=== PATIENT | male | born 1995 | race Caucasian/White ===

== ENCOUNTER 2016-12-21 23:50 | Inpatient (IN) | payer SELFPAY ==
[~2016-12-21] VITALS: Ht 165.1 cm; Wt 86.2 kg
--- NOTE | 2016-12-22 | NUR ---
21 YO MALE BB RA, C/O "WAS EATING CHICKEN STRIPS AND FEEL LIKE ONE IS STUCK IN MY THROAT". PT AMBULATED TO ER BED, SKIN WARM AND DRY, RR EVEN AND UNLABORED. AWAITING ORDERS FROM PROVIDER
[2016-12-22] MEDS ORDERED: METOCLOPRAMIDE HCL 10 MG/2 ML VIAL ONE (00:07)
[2016-12-22] MEDS ORDERED: diphenhydrAMINE HCL 50 MG/ML VIAL ONE (00:07)
--- NOTE | 2016-12-22 00:16 | NUR ---
MEDICATED PT ORDERED
[2016-12-22] MEDS ORDERED: diphenhydrAMINE HCL 50 MG/ML VIAL IM ONE (00:30)
[2016-12-22] MEDS ORDERED: NITROGLYCERIN 0.4 MG/TAB BOTTLE SL ONE (00:30)
[2016-12-22] MEDS ORDERED: METOCLOPRAMIDE HCL 10 MG/2 ML VIAL IM ONE (00:30)
[2016-12-22] MEDS ORDERED: IV PREMIX D5 1/2NS + KCL 1,000 ML IV ONE ×2 (00:57→01:18)
[2016-12-22] MEDS ORDERED: LORAZEPAM INJ 2 MG/ML VIAL IV ONE (01:00)
[2016-12-22 01:12] LABS: BASOPHILS # (AUTO) 0.1 /CMM (0.0-0.2); EOSINOPHILS # (AUTO) 0.5 /CMM (0.0-0.7); EOSINOPHILS % (AUTO) 4.6 % (0.0-6.0); HEMATOCRIT 41 % (39-51); HEMOGLOBIN 13.3 g/dL (13.5-17.5); LYMPHOCYTES # (AUTO) 2.8 /CMM (0.8-4.8); LYMPHOCYTES % (AUTO) 27.5 % (20.0-44.0); MEAN CORPUSCULAR HEMOGLOBIN 26 PG (26.0-33.0); MEAN CORPUSCULAR HGB CONC 33 g/dl (31.0-36.0); MEAN CORPUSCULAR VOLUME 79 fL (80-96); MONOCYTES # (AUTO) 0.7 /CMM (0.1-1.30); MONOCYTES % (AUTO) 6.9 % (2.0-12.0); NEUTROPHILS # (AUTO) 6.1 /CMM (1.8-8.9); PLATELET COUNT (AUTO) 442 /CMM (150-450); RDW COEFFICIENT OF VARIATION 14.4 (11.5-15.0); RED BLOOD CELL COUNT(AUTO) 5.19 MIL/uL (4.5-6.0); WHITE BLOOD COUNT (AUTO) 10.1 K/uL (4.3-11.0)
[2016-12-22] MEDS ORDERED: IV SET PRIMARY PUMP SET 1 EA INFUS.SET MC ONE (01:18)
[2016-12-22] MEDS ORDERED: LORAZEPAM INJ 2 MG/ML VIAL ONE (01:19)
[2016-12-22 01:23] LABS: CALCIUM, SERUM 8.7 mg/dL (8.5-10.1); CARBON DIOXIDE 27 mmol/L (21-32); CHLORIDE 108 mmol/L (98-107); CREATININE 1.1 mg/dL (0.6-1.3); GFR 85 mL/min (>60); GLUCOSE 92 mg/dL (74-106); POTASSIUM 3.9 mmol/L (3.5-5.1); SODIUM SERUM 143 mmol/L (136-145); UREA NITROGEN, BLOOD 8 mg/dL (7-18)
[2016-12-22 01:29] LABS: ALANINE AMINOTRANSFERASE 22 U/L (12-78); ALKALINE PHOSPHATASE 78 U/L (46-116); ASPARTATE AMINOTRANSFERASE 19 U/L (15-37); BILIRUBIN,TOTAL 0.1 mg/dL (0.2-1.0); TOTAL PROTEIN, SERUM 8.4 g/dL (6.4-8.2)
--- NOTE | 2016-12-22 01:31 | NUR ---
MEDICATED PT ORDERED
[2016-12-22 01:32] LABS: PROTHROMBIN TIME 10.7 SECS (9.5-12.7)
[2016-12-22 01:33] LABS: TROPONIN I < 0.017 ng/mL (0.00-0.056)
[2016-12-22] MEDS ORDERED: ONDANSETRON HCL/PF 4 MG/2 ML VIAL ONE (01:45)
--- NOTE | 2016-12-22 02:20 | NUR ---
MS/RN NOTES RECEIVED REPORT PATIENT WILL BE ON MS NOT TELE PER CHARGE NURSE.
[2016-12-22] MEDS ORDERED: MORPHINE SULFATE INJ 2 MG/ML DISP.SYRIN IV PRN ×2 (02:30→21:00)
[2016-12-22] MEDS ORDERED: MAGNESIUM HYDROXIDE 30 ML UDC PO PRN (02:30)
[2016-12-22] MEDS ORDERED: ZOLPIDEM TARTRATE 5 MG TABLET PO PRN (02:30)
[2016-12-22] MEDS ORDERED: HYDROCODONE/APAP 5/325MG 1 EACH TABLET PO PRN (02:30)
[2016-12-22] MEDS ORDERED: Z GUARD REMEDY 2 OZ OINT TP PRN (02:30)
[2016-12-22] MEDS ORDERED: MAG HYDROX/AL HYDROX/SIMETH 30 ML UDC PO PRN (02:30)
[2016-12-22] MEDS ORDERED: ACETAMINOPHEN 325 MG TABLET PO PRN (02:30)
--- NOTE | 2016-12-22 02:30 | NUR ---
MS/RN NOTES RECEIVED NEW ADMITTED PATIENT IS A 21Y.O MALE WHO CAME FROM ER DUE TO REPORT FROM PATIENT"WAS EATING CHICKEN STRIP AND FELT LIKE ONE PIECE STUCK IN THROAT. ARRIVED ON A GURNEY WITH IV ON LEFT HAND GAUGE 20 RUNNING IV FLUID D5 0.45NACL AT 150ML/HR. ALERT, ORIENTEDX4 WITH FAMILY FRIEND/ROOM MATE.ON NPO. COUGHING OUT WITH SALIVA. VITAL SIGNS CHECK B/P 153/76, PULSE-100, R-19, TEM-97.7 ON RA AT 100%. NO PAIN VERBALIZED. PROVIDED COMFORT MEASURES, HOB ELEVATED AND PROVIDED SAFETY MEASURES. SKIN INTACT.CALL LIGHTS WITHIN REACH. WILL CONTINUE TO MONITOR.
--- NOTE | 2016-12-22 02:42 | NUR ---
TRANSPORTED PT TO TELE BED WITHOUT INCIDENT
[2016-12-22 03:25] VITALS: BP 153/76
[2016-12-22 04:30] VITALS: BP 153/76
--- NOTE | 2016-12-22 07:03 | NUR ---
MS/RN CLOSING NOTES PATIENT ASLEEP BUT AWAKENS EASILY. NO S/S OF SOB OR DISTRESS.WILL CONTINUE TO MONITOR.
--- NOTE | 2016-12-22 07:22 | NUR ---
MS/RN OPENING NOTES RECEIVED PATIENT IN BED ASLEEP, EASILY AROUSABLE. ALERT AND ORIENTED X4. VERBALLY RESPONSIVE, DENIES ANY PAIN OR DISCOMFORTS AT THIS TIME. HEAD OF BED ELEVATED. ON ROOM AIR, BREATHING WELL WITH NO SOB NOTED. IV ACCESS ON LEFT HAND INTACT AND PATENT WITH IVF INFUSING WELL, NO SIGNS OF INFILTRATION NOTED. CALL LIGHT WITHIN REACH. BED IN LOW POSITION AND LOCKED. WILL MAINTAIN SAFETY MEASURES. WILL CONTINUE TO MONITOR ACCORDINGLY
[2016-12-22 08:00] VITALS: BP 140/89
[2016-12-22] MEDS: PANTOPRAZOLE 40 MG VIAL IV SCH (09:10)
[2016-12-22] MEDS: IV D5/0.45 NACL 1,000 ML IV PRN ×2 (09:16→18:36)
[2016-12-22] MEDS: ONDANSETRON HCL/PF 4 MG/2 ML VIAL IVP PRN ×2 (09:38→20:13)
--- NOTE | 2016-12-22 09:38 | NUR ---
RN NOTES PATIENT VOMITED SMALL AMOUNT OF EMESIS WITH STRIPS OF MEAT. PRN ZOFRAN 4MG GIVEN IV. HOB KEPT ELEVATED. ORAL CARE DONE. WILL CONTINUE TO MONITOR. Addendum: 12/22/16 at 0943 by KITA CEJA RN ADDENDUM; PATIENT MAINTAINED ON NPO PER REPORT FROM NETEZZA ARCHITECT UNTIL FURTHER EVALUATION FROM MD. MONITORING CONTINUES.
--- NOTE | 2016-12-22 11:38 | NUR ---
RN NOTES PATIENT STILL VOMITING ON AND OFF SMALL AMOUNT OF LIQUID. MD VISUALLY EXAMINED MOUTH AND THROTH WITH NO VISIBLE FOREIGN THING OBSERVED. ORDERED TO CONTINUE NPO AND TO DO STAT CT SCAN OF NECK. WILL CONTINUE TO MONITOR.
[2016-12-22] MEDS ORDERED: IOHEXOL-300 100 ML VIAL IV ONE (11:56)
[2016-12-22] MEDS ORDERED: IV NS 0.9% 250 ML IV ONE (11:56)
[2016-12-22] MEDS ORDERED: CT SWABBABLE VALVE TRANS SET 1 EA INFUS.SET MC ONE (11:56)
[2016-12-22] MEDS ORDERED: FEE PK DOSING 1 MIN EA MC ONE (12:12)
--- NOTE | 2016-12-22 12:15 | NUR ---
RN NOTES PATIENT FOR CT SCAN OF NECK WITH CONTRAST. EXPLAINED PROCEDURE TO PATIENT AND VERBALIZED UNDERSTANDING. CONSENT SIGNED BY PATIENT AND FILED ON CHART. WILL CONTINUE TO MONITOR.
[2016-12-22] MEDS ORDERED: SECONDARY IV SET 1 EA INFUS.SET MC ONE (12:40)
[2016-12-22] MEDS: CEFTRIAXONE 1 G in IV D5W 50 ML IV SCH (12:44)
[2016-12-22] MEDS: VANCOMYCIN 1 GM in IV D5W 250 ML IV SCH ×2 (13:26→20:18)
[2016-12-22] MEDS: PROMETHAZINE HCL 25 MG/ML AMPUL IV PRN (14:36)
[2016-12-22 16:00] VITALS: BP 113/71
--- NOTE | 2016-12-22 16:58 | NUR ---
RN NOTES PATIENT'S CT SCAN OF NECK RESULTS SHOWS NO MASS, ABSCESS OR FOREIGN BODY. NEOPLASTIC PROCESS IS DIFFICULT TO EXCLUDE. MD AWARE. WILL CONTINUE TO MONITOR
--- NOTE | 2016-12-22 18:04 | NUR ---
RN NOTES RECEIVED EENT DR ADITHYA PAYAN AND EXPLAINED CONDITION OF PATIENT HE SAID HE WILL TRY TO COME AND WILL CALL UNIT IF HE COUDN'T COME. PATIENT SCHEDULED FOR ESOPHAGOGASTRODUDENOSCOPY TOMORROW. PATIENT ASLEEP AT THIS TIME. NEEDS CONSENT FROM PATIENT. WILL CONTINUE TO MONITOR.
--- NOTE | 2016-12-22 19:12 | NUR ---
MS/RN CLOSING NOTES PATIENT IN BED ASLEEP AT THIS TIME, EASILY AWAKENS. ALERT AND ORIENTED X4. VERBALLY RESPONSIVE. STILL VOMITING LIQUID EMESIS IN MODERATE AMOUNT ON AND OFF DURING SHIFT, MD AWARE. HEAD OF BED ELEVATED. MAINTAINED ON NPO. COMPLAINTS OF SOB X1, MD MADE AWARE WITH ORDER TO GIVE 02 VIA N/C @ 2LPM PRN. IV ACCESS ON LEFT HAND INTACT AND PATENT WITH IVF OF D5 1/2 NS @ 150ML/HR INFUSING WELL, NO SIGNS OF INFILTRATION NOTED. CALL LIGHT WITHIN REACH. BED IN LOW POSITION AND LOCKED. SAFETY MEASURES MAINTAINED. ENDORSED TO SUPERVISOR CUSTOMER SERVICES TO CONTINUE CARE AND MONITOR PATIENT.
--- NOTE | 2016-12-22 19:45 | NUR ---
RN OPENING NOTES FOUND Pt AWAKE IN BED. Pt IS A/OX4, VERBAL, ABLE TO MAKE NEEDS KNOWN. Pt C/O THROAT & CHEST PAIN /10 DUE TO VOMITING. Pt IS STILL VOMITING WITH EMESIS PRESENT. IV ACCESS ON L HAND #20G, IVF D5 1/2NS @150ML/HR, INFUSING WELL. SAFETY MEASURES IN PLACE. BED LOW, LOCKED, HOB ELEVATED, SIDE RAILS UP, CALL LIGHT AND BEDSIDE TABLE WITHIN EACH. WILL CONTINUE TO MONITOR Pt THROUGHOUT THE NIGHT FOR SAFETY.
[2016-12-22 20:00] VITALS: BP 122/80
--- NOTE | 2016-12-22 20:15 | NUR ---
RN NOTES Pt IS UNABLE TO KEEP ANY PO MEDS DOWN. Pt ASKED FOR PAIN MED, BUT ONLY HAS NORCO-5 IN HIS eMAR LIST FOR PAIN. WAS NOT ABLE TO KEEP THE NORCO DOWN. THREW IT UP ONCE HE HAD A SIP OF WATER TO SWALLOW. WILL CALL MD SIDEROGRAPHIST TO REQUEST FOR AN IV PAIN MED. Pt IS ALSO REQUESTING TO SHOWER TONIGHT.
--- NOTE | 2016-12-22 21:03 | NUR ---
RN NOTES SPOKE WITH LEANNE OAKLEY ON THE PHONE. INFORMED MD ABOUT THE Pt's PAIN, AND HOW HE IS UNABLE TO HOLD ANYTHING DOWN. ORDERED MORPHINE 3MG PRN/Q4, AND SO GAVE THE OK TO SHOWER.
[2016-12-22 22:00] VITALS: BP 122/80
[2016-12-23] MEDS: PROMETHAZINE HCL 25 MG/ML AMPUL IV PRN (02:06)
[2016-12-23] MEDS: VANCOMYCIN 1 GM in IV D5W 250 ML IV SCH ×2 (05:21→12:37)
[2016-12-23] MEDS: IV D5/0.45 NACL 1,000 ML IV PRN (05:21)
--- NOTE | 2016-12-23 06:51 | NUR ---
RN CLOSING NOTES NO SIGNIFICANT CHANGES DURING THE SHIFT. ALL NEEDS MET AND ATTENDED TO. NO S/S OF ACUTE DISTRESS OR SOB NOTED DURING THE NIGHT. ALL SAFETY MEASURES CARRIED OUT. EGD SCHEDULED TODAY. CONSENT FORM SIGNED AND PLACED IN CHART. NPO SINCE 12/22/16. WILL ENDORSE TO DAYSHIFT RN FOR Pt's SHAREE.
[2016-12-23 07:20] LABS: BASOPHILS % (AUTO) 0.3 % (0.0-2.0); EOSINOPHILS # (AUTO) 0.4 /CMM (0.0-0.7); EOSINOPHILS % (AUTO) 2.6 % (0.0-6.0); HEMATOCRIT 38 % (39-51); HEMOGLOBIN 12.4 g/dL (13.5-17.5); LYMPHOCYTES # (AUTO) 2.7 /CMM (0.8-4.8); LYMPHOCYTES % (AUTO) 19.1 % (20.0-44.0); MEAN CORPUSCULAR HEMOGLOBIN 26 PG (26.0-33.0); MEAN CORPUSCULAR HGB CONC 33 g/dl (31.0-36.0); MEAN CORPUSCULAR VOLUME 80 fL (80-96); MONOCYTES # (AUTO) 1.2 /CMM (0.1-1.30); MONOCYTES % (AUTO) 8.4 % (2.0-12.0); NEUTROPHILS % (AUTO) 69.6 % (43.0-81.0); PLATELET COUNT (AUTO) 362 /CMM (150-450); RDW COEFFICIENT OF VARIATION 14.5 (11.5-15.0); RED BLOOD CELL COUNT(AUTO) 4.71 MIL/uL (4.5-6.0); WHITE BLOOD COUNT (AUTO) 14.4 K/uL (4.3-11.0)
--- NOTE | 2016-12-23 07:40 | NUR ---
RN OPENING NOTES Pt ASLEEP IN BED EASILY AROUSABLE DURING CARE. Pt IS A/OX4, VERBAL, ABLE TO MAKE NEEDS KNOWN. IN NO APPARENT PAIN OR DISCOMFORT, IVF D5 1/2NS @150ML/HR, INFUSING WELL. SAFETY MEASURES IN PLACE. BED LOW, LOCKED, HOB ELEVATED, SIDE RAILS UP, CALL LIGHT AND BEDSIDE TABLE WITHIN EACH. WILL CONTINUE TO MONITOR
[2016-12-23 07:55] LABS: CALCIUM, SERUM 8.5 mg/dL (8.5-10.1); CREATININE 0.9 mg/dL (0.6-1.3); MAGNESIUM 1.8 mg/dL (1.8-2.4); PHOSPHORUS 3.7 mg/dL (2.5-4.9); POTASSIUM 3.5 mmol/L (3.5-5.1)
[2016-12-23 08:00] VITALS: BP 128/67
[2016-12-23] MEDS: PANTOPRAZOLE 40 MG VIAL IV SCH (08:34)
[2016-12-23] MEDS: CEFTRIAXONE 1 G in IV D5W 50 ML IV SCH (13:00)
--- NOTE | 2016-12-23 13:50 | NUR ---
RN NOTES PT REFUSES 1400 ATB STATES " I DONT NEED IT IM FINE, IM GOING HOME" NURSING EDUCATION REINFORCED WILL CONTINUE TO MONITOR
--- NOTE | 2016-12-23 14:45 | NUR ---
MS RN NOTE: PATIENT SITTING UP IN BED, NO ACUTE DISTRESS NOTED. BREATHING EVEN AND UNLABORED, NO SOB NOTED IN NO APPARENT PAIN OR DISCOMFORT. IV TO LEFT HAND AND ID BAND REMOVED. NO SKIN ISSUES UPON DISCHARGE. PATIENT ABLE TO TOLERATE MEAL WITH NO N/V PRIOR TO DISCHARGE. DISCHARGE INSTRUCTIONS REVIEWED WITH PATIENT, WITH NOTED VERBAL UNDERSTANDING, ASSISTED TO LOBBY BY COMPUTATIONAL SCIENCES PROFESSOR DISCHARGED IN STABLE CONDITION, TAXI VOUCHER PROVIDED
[2016-12-23] MEDS ORDERED: VANCOMYCIN 1.25 GM in IV D5W 500 ML IV SCH (21:00)
== END 2016-12-23 14:45 | disposition home or self-care (01) | DRG 395 ==
LOC: ER 23:51 → TELE 12-22 02:24 → MED 12-22 02:49
PROVIDERS: ADMIT Family Medicine; ATTEND Internal Medicine
DX: T18.108A Unspecified foreign body in esophagus causing other injury, initial encounter (principal); X58.XXXA Exposure to other specified factors, initial encounter; Y92.009 Unspecified place in unspecified non-institutional (private) residence as the place of occurrence of the external cause; J35.1 Hypertrophy of tonsils; R59.0 Localized enlarged lymph nodes; J34.2 Deviated nasal septum; Y93.9 Activity, unspecified; Y99.9 Unspecified external cause status; R59.1 Generalized enlarged lymph nodes
CPT/HCPCS: 36415; 70360-TC; 70491-TC; 71010-TC; 80048-TC; 80076-TC; 80202-TC; 83735-TC; 84100-TC; 84484-TC; 85025-TC; 85730-TC; 87081-TC; A4606; C9113; J0696; J1200; J2060; J2270; J2405; J2550; J2765; J3370; J3490; J7050; J7060; Q9967; Z7610

== ENCOUNTER 2017-11-17 15:31 | Emergency (ER) | payer MEDICAID, OTHER ==
[~2017-11-17] VITALS: Ht 177.8 cm; Wt 73.5 kg
[2017-11-17 15:54] VITALS: BP 119/68
== END 2017-11-17 16:42 | disposition home or self-care (01) ==
LOC: ER 15:36
DX: Z53.21 Procedure and treatment not carried out due to patient leaving prior to being seen by health care provider (principal)
CPT/HCPCS: A4606; Z7610

== ENCOUNTER 2017-12-19 04:39 | Emergency (ER) | payer OTHER ==
[~2017-12-19] VITALS: Ht 160 cm; Wt 56.7 kg
--- NOTE | 2017-12-19 05:13 | NUR ---
PT TO ER BED 13. BIBRA C/O ANXIETY AFTER DRINKING ETOH AND TAKING TRANSGENDER MEDS. PT DENIES SI/HI. PT PLACED IN GOWN AND ON SAFETY ADVISOR. VSS/RESP EVEN UNLABORED/NAD NOTED/SKIN WARM AND DRY/DENIES N-V-D/AFEBRILE/AOX4. AWAITING MD COBIAN.
--- NOTE | 2017-12-19 05:14 | NUR ---
AT BEDSIDE FOR EVAL.
--- NOTE | 2017-12-19 07:25 | NUR ---
ENDORSED TO [facility] LOBO FOR SHAREE.
--- NOTE | 2017-12-19 08:36 | NUR ---
Patient discharged to home in stable condition. Written and verbal after care instructions given. Patient verbalizes understanding of instruction. ambulatory with a steady gait.
--- NOTE | 2017-12-19 08:49 | NUR ---
PATIENT DISCHARGED VIA TAXI VOUCHER PROVIDED BY IN[facility]S P[facility]NAM.
[2017-12-19 08:50] VITALS: BP 125/65
== END 2017-12-19 08:51 | disposition home or self-care (01) ==
LOC: ER 04:45
DX: F10.129 Alcohol abuse with intoxication, unspecified (principal); F41.0 Panic disorder [episodic paroxysmal anxiety]; G47.30 Sleep apnea, unspecified
CPT/HCPCS: A4606; Z7610